=== PATIENT | male | born 1955 | race Caucasian/White ===

== ENCOUNTER → 2017-07-21 | Outpatient (CLI) | payer OTHER ==
[~2017-07-21] MED LIST: BACTRIM,SEPT1 TABLET PO; KEFLEX500 MG PO; PERCOCET 5/31 TABLET PO
== END | disposition home or self-care (01) ==
LOC: NUC 07-20 11:00
DX: M41.85 Other forms of scoliosis, thoracolumbar region (principal); M17.0 Bilateral primary osteoarthritis of knee; M19.072 Primary osteoarthritis, left ankle and foot; M19.071 Primary osteoarthritis, right ankle and foot; R93.7 Abnormal findings on diagnostic imaging of other parts of musculoskeletal system
CPT/HCPCS: 78306; A9503

== ENCOUNTER 2017-10-27 22:34 | Inpatient (IN) | payer OTHER ==
[~2017-10-27] VITALS: Ht 170.2 cm; Wt 76.2 kg
[~2017-10-27 22:34] MED LIST changes: +IBUPROFEN800 MG PO; +PRILOSEC20 MG PO
[2017-10-28 06:46] VITALS: BP 114/77
[2017-10-28] MEDS ORDERED: PERCOCET 5/31 TABLET PO (11:40)
[2017-10-28] MEDS ORDERED: SEPTRA DS TABL1 EACH PO (11:40)
[2017-10-28 13:47] VITALS: BP 116/56
[2017-10-28 15:00] LABS: HEMATOCRIT 37.2 % (38.0-50.0); MCV 86.1 FL (86-99)
[2017-10-28 16:36] LABS: POINT-OF-CARE METER ID UU13113774
[2017-10-28 17:19] VITALS: BP 157/78
[2017-10-28 23:23] VITALS: BP 113/69
[2017-10-29 04:00] VITALS: BP 111/63
[2017-10-29 06:15] LABS: HEMATOCRIT 32.7 % (38.0-50.0); MCV 85.6 FL (86-99)
[2017-10-29 06:44] LABS: ANION GAP 7 MEQ/L (2-14); CHLORIDE 106 MEQ/L (99-109); GFR ESTIMATE (CALCULATED) > 59 mL/min/ (58.99-99999); GLUCOSE 95 mg/dL (70-99); POTASSIUM 4.1 MEQ/L (3.7-5.4); SAMPLE HEMOLYSIS CHECK 0; SAMPLE ICTERIC CHECK 0; SAMPLE LIPEMIA CHECK 0; SODIUM 139 MEQ/L (136-147); UREA NITROGEN (BUN) 14 mg/dL (9-23)
[2017-10-29 08:07] VITALS: BP 108/64
[2017-10-29 16:52] VITALS: BP 119/76
[2017-10-30] VITALS: BP 102/64
[2017-10-30 07:39] VITALS: BP 114/70
[2017-10-30 08:28] VITALS: BP 120/68
== END 2017-10-30 13:05 | disposition home or self-care (01) | DRG 708 ==
LOC: ENRESERV 22:34 → 5EAST 10-28 06:17 → 2SOUTH 10-28 06:17 → ENRESERV 10-28 11:28 → 2SOUTH 10-28 11:36 → 5EAST 10-28 13:11 → 2SOUTH 10-28 14:20 → 5EAST 10-30 13:05
PROVIDERS: Urology
DX: C61 Malignant neoplasm of prostate (principal); N28.89 Other specified disorders of kidney and ureter; F17.210 Nicotine dependence, cigarettes, uncomplicated; F14.90 Cocaine use, unspecified, uncomplicated; F12.90 Cannabis use, unspecified, uncomplicated; K21.9 Gastro-esophageal reflux disease without esophagitis; R39.15 Urgency of urination; R94.31 Abnormal electrocardiogram [ECG] [EKG]; M54.5 Low back pain; M19.90 Unspecified osteoarthritis, unspecified site; Z85.820 Personal history of malignant melanoma of skin; Z80.9 Family history of malignant neoplasm, unspecified
CPT/HCPCS: 36415; 80048; 82948; 85014; 85018; 85025; 85610; 85730; 86850; 86900; 86901; 86920; 88305; 88309; J0131; J0330; J0690; J1100; J1170; J1580; J1885; J2250; J2405; J2710; J3010; J7120